=== PATIENT | female | born 1980 | race African-American/Black ===

== ENCOUNTER 2018-09-09 07:25 | Inpatient (IN) | payer SELFPAY ==
[~2018-09-09] VITALS: Ht 172.7 cm; Wt 94.3 kg
[2018-09-09] MEDS ORDERED: LIDOCAINE HCL 1% 20ML VIAL (Pyxis) INJ INFIL SCH (08:30)
[2018-09-09] MEDS ORDERED: DEXT 5%/LR + PITOCIN 20UNITS/L 1,000 ML IV SCH ×2 (08:30→19:10)
[2018-09-09] MEDS ORDERED: CARBOPROST TROMETHAMINE 250 MCG/ML AMPUL IM PRN (08:30)
[2018-09-09] MEDS ORDERED: NALOXONE HCL 0.4 MG/ML 1ML VIAL IM PRN (08:30)
[2018-09-09] MEDS: LACTATED RINGERS 1,000 ML IV SCH ×3 (08:55→20:45)
[2018-09-09 08:56] LABS: BASOPHILS % 0.6 % (0.0-2.0); EOSINOPHILS % 1.2 % (0.0-5.0); HEMATOCRIT. 36.7 % (36.0-48.0); HEMOGLOBIN. 11.8 g/dL (12.0-16.0); LYMPHOCYTES % 23.5 % (20.0-50.0); MEAN CORPUSCULAR HEMOGLOBIN 26.8 pg (28.0-32.0); MEAN CORPUSCULAR VOLUME 83.2 fL (81.0-99.0); MEAN PLATELET VOLUME 9.5 fl (7.4-10.4); MONOCYTES % 10.2 % (2.0-8.0); NEUTROPHILS % 64.5 % (40.0-76.0); PLATELET 202 x1000/uL (130-400); RED BLOOD CELL COUNT 4.41 mill/uL (4.2-5.4); RED CELL DISTRIBUTION WIDTH 15.7 % (11.6-14.6)
[2018-09-09 08:57] LABS: CLARITY URINE CLEAR (CLEAR); COLOR URINE YELLOW (YELLOW); KETONES URINE NEGATIVE (NEGATIVE); LEUKOCYTE ESTERASE URINE TRACE (NEGATIVE); NITRITE URINE NEGATIVE (NEGATIVE); OCCULT BLOOD URINE TRACE (NEGATIVE); PH URINE 7.5 (4.5-8.0); PROTEIN URINE NEGATIVE (NEGATIVE); SPECIFIC GRAVITY URINE 1.016 (1.005-1.030); UROBILINOGEN URINE 0.2 E.U./dL (0.2-1.0)
[2018-09-09 09:00] LABS: INR 0.9; PARTIAL THROMBOPLASTIN TIME 24.7 sec (23.4-31.0); PROTHROMBIN TIME 9.6 sec (9.6-11.0)
[2018-09-09 09:12] LABS: *AMPHETAMINES SCREEN URINE NEGATIVE (NEGATIVE); *BARBITURATES SCREEN URINE NEGATIVE (NEGATIVE); *BENZODIAZEPINES SCREEN URINE NEGATIVE (NEGATIVE); *COCAINE SCREEN URINE NEGATIVE (NEGATIVE)
[2018-09-09 09:13] LABS: CANNABINOID URINE SCREEN NEGATIVE (NEGATIVE); METHADONE URINE SCREEN NEGATIVE (NEGATIVE); OPIATES URINE SCREEN NEGATIVE (NEGATIVE); PHENCYCLIDINE URINE SCREEN NEGATIVE (NEGATIVE)
[2018-09-09 11:14] LABS: HEPATITIS B SURFACE ANTIGEN NEGATIVE
[2018-09-09] MEDS ORDERED: MISOPROSTOL 100MCG TABLET VG PRN (13:00)
[2018-09-09] MEDS ORDERED: MINERAL OIL 30ML BOTTLE PR PRN (14:45)
[2018-09-09] MEDS: BUTORPHANOL TARTRATE 2 MG/ML VIAL IV PRN ×2 (20:28→23:12)
[2018-09-10] MEDS: LACTATED RINGERS 1,000 ML IV SCH (04:23)
[2018-09-10] MEDS: BUTORPHANOL TARTRATE 2 MG/ML VIAL IV PRN (04:28)
[2018-09-10] MEDS ORDERED: ROPIVACAINE HCL 10MG/ML 20 ML VIAL EPI ONE (08:45)
[2018-09-10] MEDS ORDERED: ROPIVACAINE HCL/PF EPIDURAL 200 ML EPI PRN (09:00)
[2018-09-10] MEDS ORDERED: LACTATED RINGERS 1,000 ML IV SCH (09:00)
[2018-09-10] MEDS ORDERED: BENZOCAINE/LANOLIN/ALOE VERA SPRAY TOP PRN (15:15)
[2018-09-10] MEDS ORDERED: LANOLIN OINT 0.25 GM TUBE TOP PRN (15:15)
[2018-09-10] MEDS ORDERED: ACETAMINOPHEN 500MG TABLET PO PRN (15:15)
[2018-09-10] MEDS ORDERED: METHYLERGONOVINE MALEATE 0.2 MG/ML IM PRN (15:15)
[2018-09-10 16:30] VITALS: BP 125/65
[2018-09-10] MEDS: IBUPROFEN 800MG TABLET PO PRN (17:31)
[2018-09-10 19:15] VITALS: BP 121/64
[2018-09-10] MEDS: DOCUSATE SODIUM 100MG CAPSULE PO SCH (21:12)
[2018-09-11 00:30] VITALS: BP 126/68
[2018-09-11] MEDS: IBUPROFEN 800MG TABLET PO PRN ×3 (03:03→17:54)
[2018-09-11 04:00] VITALS: BP 106/65
[2018-09-11 07:44] LABS: HEMATOCRIT 26.7 % (36.0-48.0); HEMOGLOBIN 8.5 g/dL (12.0-16.0)
[2018-09-11 08:00] VITALS: BP 96/60
[2018-09-11 17:57] VITALS: BP 109/68
[2018-09-11 19:15] VITALS: BP 115/74
[2018-09-11] MEDS: DOCUSATE SODIUM 100MG CAPSULE PO SCH (21:13)
[2018-09-12] VITALS: BP 116/76
[2018-09-12 03:55] VITALS: BP 117/77
[2018-09-12] MEDS: IBUPROFEN 800MG TABLET PO PRN ×2 (03:57→11:27)
[2018-09-12 08:00] VITALS: BP 110/62
== END 2018-09-12 13:10 | disposition home or self-care (01) | DRG 542 ==
LOC: 8 EST LDRP 07:25 → OBSVTOIN 07:25 → 8EST 09-10 16:50
PROVIDERS: ADMIT Obstetrics & Gynecology Obstetrics; ATTEND Obstetrics & Gynecology Obstetrics
PROC: 10E0XZZ Delivery of Products of Conception, External Approach (ICD-10-PCS; principal; 2018-09-10)
PROC: 0DQR0ZZ Repair Anal Sphincter, Open Approach (ICD-10-PCS; 2018-09-10)
PROC: 10907ZC Drainage of Amniotic Fluid, Therapeutic from Products of Conception, Via Natural or Artificial Opening (ICD-10-PCS; 2018-09-10)
PROC: 3E0R3BZ Introduction of Anesthetic Agent into Spinal Canal, Percutaneous Approach (ICD-10-PCS; 2018-09-10)
PROC: 00HU33Z Insertion of Infusion Device into Spinal Canal, Percutaneous Approach (ICD-10-PCS; 2018-09-10)
PROC: 0W8NXZZ Division of Female Perineum, External Approach (ICD-10-PCS; 2018-09-10)
PROC: 3E0P7VZ Introduction of Hormone into Female Reproductive, Via Natural or Artificial Opening (ICD-10-PCS; 2018-09-10)
DX: O36.63X0 Maternal care for excessive fetal growth, third trimester, not applicable or unspecified (principal); O66.0 Obstructed labor due to shoulder dystocia; O77.0 Labor and delivery complicated by meconium in amniotic fluid; O48.0 Post-term pregnancy; O69.81X0 Labor and delivery complicated by cord around neck, without compression, not applicable or unspecified; O70.20 Third degree perineal laceration during delivery, unspecified; D64.9 Anemia, unspecified; O90.81 Anemia of the puerperium; Z3A.40 40 weeks gestation of pregnancy; Z37.0 Single live birth
CPT/HCPCS: 36415; 76805; 80305; 85014; 85018; 86592; 86703; 86762; 86850; 86900; 87340; J0595; J2590; J2795; J7120; A4315